=== PATIENT | male | born 1990 | race Caucasian/White ===

== ENCOUNTER 2021-12-18 11:40 | Emergency (ER) | payer OTHER ==
[2021-12-18] MEDS ORDERED: CEPHALEXIN500 M1 PO (13:15)
== END 2021-12-18 13:23 | disposition home or self-care (01) ==
LOC: ER1 11:40
DX: S01.01XA Laceration without foreign body of scalp, initial encounter (principal); L03.211 Cellulitis of face; W22.8XXA Striking against or struck by other objects, initial encounter; Y93.9 Activity, unspecified; Y92.009 Unspecified place in unspecified non-institutional (private) residence as the place of occurrence of the external cause; Y99.0 Civilian activity done for income or pay
CPT/HCPCS: 90471; 90715; 99283